=== PATIENT | male | born 1985 | race Caucasian/White ===

== ENCOUNTER → 2021-01-27 11:12 | Outpatient (CLI) | payer BC, SELFPAY ==
--- NOTE | 2021-01-27 11:17 | DI.US.S_ITS ---
PROCEDURE: US THYROID INDICATIONS: Nontoxic diffuse goiter TECHNIQUE: Real-time scanning was performed of the thyroid gland, with image documentation. COMPARISON: None. FINDINGS: Right: Thyroid lobe measures 6.1 x 1.7 x 2.1 cm, and is homogeneous in echotexture. Left: Thyroid lobe measures 6.0 x 1.9 x 2.2 cm, and is homogenous in echotexture. Isthmus: 4.0 mm thick. IMPRESSION: Normal thyroid. Dictated by: Navjot ALMANZA Interpreted: Thomas Still MD on 01/27/2021 at 11:53 Approved by: Thomas Still M.D. on 01/27/2021 at 12:56
== END ==
PROVIDERS: PCP Registered Nurse; Referring Provider Registered Nurse; Visit Provider Registered Nurse
DX: E04.0 Nontoxic diffuse goiter (principal)
CPT/HCPCS: 76536